=== PATIENT | female | born 1965 | race Caucasian/White ===

== ENCOUNTER 2025-02-24 19:34 | Emergency (ER) | payer MEDICARE, SELFPAY ==
[2025-02-24 20:08] VITALS: BP 185/71; PULSE 90; TEMP 36.8; O2SAT 90; BMI 31.2
--- NOTE | 2025-02-24 21:04 | XR_ITS ---
The [address] [address] Patient Name: MARK LUX MRN: [id number] date: 1965 Sex: F Assigned Patient Location: ED.MAIN Current Patient Location: ED.MAIN Accession/Order Number: [id number] Exam Date: 02/24/2025 21:49 Report Date: 02/24/2025 22:28 At the request of: TR HALL Procedure: XR chest 2V PA AND LATERAL CHEST: CLINICAL HISTORY: copd cough COMPARISON: None FINDINGS: Mildly prominent cardiomediastinal. Left suprahilar opacity/medial left upper lung opacity. Remaining lungs are clear. No effusion or pneumothorax. Left axillary surgical clips. Aortic stent graft. XR/XR chest 2V IMPRESSION: Left upper lung/periaortic opacity, unclear as to related to airspace disease, partial/lobar collapse versus sequelae of prior aortic procedure correlate with any previous imaging.. Impression dictated by: John Simon M.D. 02/24/2025 10:28 PM Dictation Location: [place] [address] Electronically authenticated by: [id number] Y Date: 02/24/2025 22:28
--- NOTE | 2025-02-24 21:17 | ED.URI1 ---
Documented by User: ISABEL CALERO 02/24/25 22:02 HPI - URI/Sore Throat General Chief Complaint: Upper Respiratory Infection Stated Complaint: CHEST CONGESTION Time Seen by Provider: 02/24/25 20:51 Source: patient History of Present Illness HPI Narrative: 59-year-old female with longstanding COPD, currently on nighttime supplemental oxygen, presents to the ED with shortness of breath. She reports her home oxygen saturation dropped to 77% today, she was not on her home oxygen at that time. She has experienced sinus-type symptoms for approximately one week, which she states have recently ?moved into her chest.? She is producing yellowish sputum. She is afebrile, denies chest pressure or hemoptysis, and reports she has experienced similar episodes in the past. She denies lightheadedness, dizziness, abdominal pain, or numbness/tingling in her extremities. She has not taken any medications for these symptoms prior to arrival. MD elicited complaint: Reports cough Related Data Allergies Allergy/AdvReac Type Severity Reaction Status Date / Time morphine Allergy Unknown Seizure Verified 02/24/25 20:08 walnut Allergy Seizure Verified 02/24/25 20:08 [facility] Social History Little interest or pleasure in doing things: not at all Feeling down, depressed, or hopeless: not at all Exam Narrative Exam Narrative: General: Alert, in no acute respiratory distress. Vital Signs / Oxygenation: Triage oxygen saturation 77% on room air; patient on supplemental oxygen as needed at home. . Lungs: Coarse breath sounds with wheezing and crackles bilaterally. Cardiac: Regular rate and rhythm, no murmurs. Extremities: Good capillary refill in nailbeds, no pedal edema. Abdomen: Soft, non-tender, non-distended. Skin: Warm, dry, intact. Neuro: Alert and oriented, no focal deficits. Constitutional Vital Signs, click to edit/add: Last Vital Signs Temp 98.3 F 02/24/25 20:08 Pulse 94 H 02/24/25 21:38 Resp 18 02/24/25 21:38 BP 185/71 H 02/24/25 20:08 Pulse Ox 94 L 02/24/25 21:38 O2 Del Method Nasal Cannula 02/24/25 21:38 O2 Flow Rate 2 02/24/25 21:38 Course Vital Signs Vital signs: Vital Signs Temperature 98.3 F 02/24/25 20:08 Pulse Rate 90 02/24/25 20:08 Respiratory Rate 20 02/24/25 20:08 Blood Pressure 185/71 H 02/24/25 20:08 Pulse Oximetry 90 L 02/24/25 20:08 Oxygen Delivery Method Room Air 02/24/25 20:08 Temperature 98.3 F 02/24/25 20:08 Pulse Rate 94 H 02/24/25 21:38 Respiratory Rate 18 02/24/25 21:38 Blood Pressure 185/71 H 02/24/25 20:08 Pulse Oximetry 94 L 02/24/25 21:38 Oxygen Delivery Method Nasal Cannula 02/24/25 21:38 Oxygen Delivery Flow Rate 2 02/24/25 21:38 MDM - URI/Sore Throat MDM Narrative Medical decision making narrative: 59-year-old female with longstanding COPD presents with shortness of breath and hypoxemia. On triage, oxygen saturation was 77% on room air. Exam shows coarse lung sounds with wheezing and crackles, heart regular, no pedal edema. ABG: pH 7.40, pCO2 46 mmHg, pO? 57 mmHg, HCO2 29 mEq/L, base excess +5.2, O2 saturation 91% on supplemental oxygen. These values indicate mild hypoxemia with chronic compensated hypercapnia, consistent with her COPD baseline. Other labs and xray Differential includes COPD exacerbation vs superimposed pneumonia given productive cough and crackles. No fever or hemodynamic instability noted. Labs and imaging pending or will guide further management. Plan: Administer bronchodilator therapy (albuterol/ipratropium) and systemic corticosteroids. Antibiotics appropriate for COPD excerbation. Maintain supplemental oxygen targeting saturation 88?92% per COPD guidelines. Monitor vital signs, oxygenation Possibly admit for observation and management of acute COPD exacerbation versus home management Patient signed out to Dr. Flynn, ED attending at 2100 Differential Diagnosis Differential diagnosis: Likely upper respiratory infection, viral infection and bronchitis Medical Records Attestation: I reviewed the patient's medical records. Lab Data Attestation: I reviewed the patient's lab results. Labs: Lab Results 02/24/25 02/24/25 02/24/25 Range/Units 21:20 21:32 21:55 WBC 8.7 (4.0-11.0) 10^3/uL RBC 4.13 L (4.20-5.40) 10^6/uL Hgb 12.9 (12.0-16.0) g/dL Hct 40.4 (36.0-48.0) % MCV 97.8 (81.0-99.0) fL MCH 31.2 (26.7-34.0) pg MCHC 31.9 (29.9-35.2) g/dL RDW 13.9 (11.0-15.0) % Plt Count 146 L (150-450) 10^3/uL MPV 10.9 (9.5-13.5) fL Neut % (Auto) 76.9 H (43.0-75.0) % Lymph % (Auto) 14.3 L (20.5-60.0) % [place] % (Auto) 5.5 (1.7-12.0) % Eos % (Auto) 2.6 (0.9-7.0) % Baso % (Auto) 0.2 (0.2-2.0) % Neut # (Auto) 6.7 H (1.4-6.5) 10^3/uL Lymph # (Auto) 1.3 (1.2-3.8) 10^3/uL [place] # (Auto) 0.5 (0.3-0.8) 10^3/uL Eos # (Auto) 0.2 (0.0-0.7) 10^3/uL Baso # (Auto) 0.0 (0.0-0.1) 10^3/uL Abs Immat Gran (auto) 0.04 H (0.00-0.03) 10^3/uL Imm/Tot Granulo (auto) 0.5 (0.0-0.5) % Puncture Site Lr ABG pH 7.418 (7.350-7.450) ABG pCO2 46.1 H (35.0-45.0) mmHg ABG pO2 57.2 L* (80.0-100.0) mmHg ABG HCO3 29.8 H (22.0-26.0) mmol/L ABG O2 Saturation 91.0 % ABG Base Excess 5.2 H (-2.0-2.0) mmol/L Clive Test Positive (POSITIVE) O2 Liters/Min 2 Sodium 130 L (136-145) mmol/L Potassium 4.1 (3.5-5.1) mmol/L Chloride 95 L (98-107) mmol/L Carbon Dioxide 27.9 (21.0-32.0) mmol/L Anion Gap 11.2 BUN 11.0 (7.0-18.0) mg/dL Creatinine 0.93 (0.55-1.02) mg/dL Est GFR ( Amer) >60 (>=60 mL/min/1.73m^2) Est GFR (Non-Af Amer) >60 (>=60 mL/min/1.73m^2) BUN/Creatinine Ratio 11.8 Glucose 167 H (74-106) mg/dL Lactate 0.4 (0.4-2.0) mmol/L Calcium 8.8 (8.5-10.1) mg/dL Troponin I High Sens 6.9 (4.0-51.3) pg/mL Influenza Type A Ag Influenza Type B Ag SARS-CoV-2 Ag (CV2AG) (NEGATIVE) 02/24/25 Range/Units 22:18 WBC (4.0-11.0) 10^3/uL RBC (4.20-5.40) 10^6/uL Hgb (12.0-16.0) g/dL Hct (36.0-48.0) % MCV (81.0-99.0) fL MCH (26.7-34.0) pg MCHC (29.9-35.2) g/dL RDW (11.0-15.0) % Plt Count (150-450) 10^3/uL MPV (9.5-13.5) fL Neut % (Auto) (43.0-75.0) % Lymph % (Auto) (20.5-60.0) % [place] % (Auto) (1.7-12.0) % Eos % (Auto) (0.9-7.0) % Baso % (Auto) (0.2-2.0) % Neut # (Auto) (1.4-6.5) 10^3/uL Lymph # (Auto) (1.2-3.8) 10^3/uL [place] # (Auto) (0.3-0.8) 10^3/uL Eos # (Auto) (0.0-0.7) 10^3/uL Baso # (Auto) (0.0-0.1) 10^3/uL Abs Immat Gran (auto) (0.00-0.03) 10^3/uL Imm/Tot Granulo (auto) (0.0-0.5) % Puncture Site ABG pH (7.350-7.450) ABG pCO2 (35.0-45.0) mmHg ABG pO2 (80.0-100.0) mmHg ABG HCO3 (22.0-26.0) mmol/L ABG O2 Saturation % ABG Base Excess (-2.0-2.0) mmol/L Clive Test (POSITIVE) O2 Liters/Min Sodium (136-145) mmol/L Potassium (3.5-5.1) mmol/L Chloride (98-107) mmol/L Carbon Dioxide (21.0-32.0) mmol/L Anion Gap BUN (7.0-18.0) mg/dL Creatinine (0.55-1.02) mg/dL Est GFR ( Amer) (>=60 mL/min/1.73m^2) Est GFR (Non-Af Amer) (>=60 mL/min/1.73m^2) BUN/Creatinine Ratio Glucose (74-106) mg/dL Lactate (0.4-2.0) mmol/L Calcium (8.5-10.1) mg/dL Troponin I High Sens (4.0-51.3) pg/mL Influenza Type A Ag Negative Influenza Type B Ag Negative SARS-CoV-2 Ag (CV2AG) Negative (NEGATIVE) Imaging Data Chest x-ray: Radiologist's impression: ITS Impressions Chest X-Ray 02/24/25 21:04 IMPRESSION: Left upper lung/periaortic opacity, unclear as to related to airspace disease, partial/lobar collapse versus sequelae of prior aortic procedure correlate with any previous imaging.. Impression dictated by: John Simon M.D. 02/24/2025 10:28 PM Dictation Location: [place] [address] Electronically authenticated by: [id number] Y Date: 02/24/2025 22:28 Discharge Plan Discharge Chief Complaint: Upper Respiratory Infection Clinical Impression: CAP (community acquired pneumonia) Patient Disposition: Home, Self-Care Print Language: Gambian Instructions: Community Acquired Pneumonia (ED) Additional Instructions: follow up with the family doctor this week for recheck Referrals: Abran Velez MD [Primary Care Provider] - 1 week Discharge Date/Time: 02/24/25 23:56 Documented by User: James Flynn MD 02/26/25 23:18 HPI - URI/Sore Throat General Chief Complaint: Upper Respiratory Infection Stated Complaint: CHEST CONGESTION Time Seen by Provider: 02/24/25 20:51 Related Data Allergies Allergy/AdvReac Type Severity Reaction Status Date / Time morphine Allergy Unknown Seizure Verified 02/24/25 20:08 walnut Allergy Seizure Verified 02/24/25 20:08 PFSH PFSH Social History Little interest or pleasure in doing things: not at all Feeling down, depressed, or hopeless: not at all Exam Constitutional Vital Signs, click to edit/add: Last Vital Signs Temp 98.3 F 02/24/25 20:08 Pulse 94 H 02/24/25 21:38 Resp 18 02/24/25 21:38 BP 185/71 H 02/24/25 20:08 Pulse Ox 94 L 02/24/25 21:38 O2 Del Method Nasal Cannula 02/24/25 21:38 O2 Flow Rate 2 02/24/25 21:38 Course Vital Signs Vital signs: Vital Signs Temperature 98.3 F 02/24/25 20:08 Pulse Rate 90 02/24/25 20:08 Respiratory Rate 20 02/24/25 20:08 Blood Pressure 185/71 H 02/24/25 20:08 Pulse Oximetry 90 L 02/24/25 20:08 Oxygen Delivery Method Room Air 02/24/25 20:08 Temperature 98.3 F 02/24/25 20:08 Pulse Rate 94 H 02/24/25 21:38 Respiratory Rate 18 02/24/25 21:38 Blood Pressure 185/71 H 02/24/25 20:08 Pulse Oximetry 94 L 02/24/25 21:38 Oxygen Delivery Method Nasal Cannula 02/24/25 21:38 Oxygen Delivery Flow Rate 2 02/24/25 21:38 MDM - URI/Sore Throat MDM Narrative Medical decision making narrative: 59-year-old female with longstanding COPD presents with shortness of breath and hypoxemia. On triage, oxygen saturation was 77% on room air. Exam shows coarse lung sounds with wheezing and crackles, heart regular, no pedal edema. ABG: pH 7.40, pCO2 46 mmHg, pO? 57 mmHg, HCO2 29 mEq/L, base excess +5.2, O2 saturation 91% on supplemental oxygen. These values indicate mild hypoxemia with chronic compensated hypercapnia, consistent with her COPD baseline. Other labs and xray Differential includes COPD exacerbation vs superimposed pneumonia given productive cough and crackles. No fever or hemodynamic instability noted. Labs and imaging pending or will guide further management. Plan: Administer bronchodilator therapy (albuterol/ipratropium) and systemic corticosteroids. Antibiotics appropriate for COPD excerbation. Maintain supplemental oxygen targeting saturation 88?92% per COPD guidelines. Monitor vital signs, oxygenation Possibly admit for observation and management of acute COPD exacerbation versus home management Patient signed out to Dr. Flynn, ED attending at 2100 care transferred at change of shift. Pt on 02 2LNC and pulse ox 94%. no distress. cxray with early infiltrate left chest. Patient advised of the above, given rocephin and zithromax in the department and discharged home Lab Data Labs: Lab Results 02/24/25 02/24/25 02/24/25 Range/Units 21:20 21:32 21:55 WBC 8.7 (4.0-11.0) 10^3/uL RBC 4.13 L (4.20-5.40) 10^6/uL Hgb 12.9 (12.0-16.0) g/dL Hct 40.4 (36.0-48.0) % MCV 97.8 (81.0-99.0) fL MCH 31.2 (26.7-34.0) pg MCHC 31.9 (29.9-35.2) g/dL RDW 13.9 (11.0-15.0) % Plt Count 146 L (150-450) 10^3/uL MPV 10.9 (9.5-13.5) fL Neut % (Auto) 76.9 H (43.0-75.0) % Lymph % (Auto) 14.3 L (20.5-60.0) % [place] % (Auto) 5.5 (1.7-12.0) % Eos % (Auto) 2.6 (0.9-7.0) % Baso % (Auto) 0.2 (0.2-2.0) % Neut # (Auto) 6.7 H (1.4-6.5) 10^3/uL Lymph # (Auto) 1.3 (1.2-3.8) 10^3/uL [place] # (Auto) 0.5 (0.3-0.8) 10^3/uL Eos # (Auto) 0.2 (0.0-0.7) 10^3/uL Baso # (Auto) 0.0 (0.0-0.1) 10^3/uL Abs Immat Gran (auto) 0.04 H (0.00-0.03) 10^3/uL Imm/Tot Granulo (auto) 0.5 (0.0-0.5) % Puncture Site Lr ABG pH 7.418 (7.350-7.450) ABG pCO2 46.1 H (35.0-45.0) mmHg ABG pO2 57.2 L* (80.0-100.0) mmHg ABG HCO3 29.8 H (22.0-26.0) mmol/L ABG O2 Saturation 91.0 % ABG Base Excess 5.2 H (-2.0-2.0) mmol/L Clive Test Positive (POSITIVE) O2 Liters/Min 2 Sodium 130 L (136-145) mmol/L Potassium 4.1 (3.5-5.1) mmol/L Chloride 95 L (98-107) mmol/L Carbon Dioxide 27.9 (21.0-32.0) mmol/L Anion Gap 11.2 BUN 11.0 (7.0-18.0) mg/dL Creatinine 0.93 (0.55-1.02) mg/dL Est GFR ( Amer) >60 (>=60 mL/min/1.73m^2) Est GFR (Non-Af Amer) >60 (>=60 mL/min/1.73m^2) BUN/Creatinine Ratio 11.8 Glucose 167 H (74-106) mg/dL Lactate 0.4 (0.4-2.0) mmol/L Calcium 8.8 (8.5-10.1) mg/dL Troponin I High Sens 6.9 (4.0-51.3) pg/mL Influenza Type A Ag Influenza Type B Ag SARS-CoV-2 Ag (CV2AG) (NEGATIVE) 02/24/25 Range/Units 22:18 WBC (4.0-11.0) 10^3/uL RBC (4.20-5.40) 10^6/uL Hgb (12.0-16.0) g/dL Hct (36.0-48.0) % MCV (81.0-99.0) fL MCH (26.7-34.0) pg MCHC (29.9-35.2) g/dL RDW (11.0-15.0) % Plt Count (150-450) 10^3/uL MPV (9.5-13.5) fL Neut % (Auto) (43.0-75.0) % Lymph % (Auto) (20.5-60.0) % [place] % (Auto) (1.7-12.0) % Eos % (Auto) (0.9-7.0) % Baso % (Auto) (0.2-2.0) % Neut # (Auto) (1.4-6.5) 10^3/uL Lymph # (Auto) (1.2-3.8) 10^3/uL [place] # (Auto) (0.3-0.8) 10^3/uL Eos # (Auto) (0.0-0.7) 10^3/uL Baso # (Auto) (0.0-0.1) 10^3/uL Abs Immat Gran (auto) (0.00-0.03) 10^3/uL Imm/Tot Granulo (auto) (0.0-0.5) % Puncture Site ABG pH (7.350-7.450) ABG pCO2 (35.0-45.0) mmHg ABG pO2 (80.0-100.0) mmHg ABG HCO3 (22.0-26.0) mmol/L ABG O2 Saturation % ABG Base Excess (-2.0-2.0) mmol/L Clive Test (POSITIVE) O2 Liters/Min Sodium (136-145) mmol/L Potassium (3.5-5.1) mmol/L Chloride (98-107) mmol/L Carbon Dioxide (21.0-32.0) mmol/L Anion Gap BUN (7.0-18.0) mg/dL Creatinine (0.55-1.02) mg/dL Est GFR ( Amer) (>=60 mL/min/1.73m^2) Est GFR (Non-Af Amer) (>=60 mL/min/1.73m^2) BUN/Creatinine Ratio Glucose (74-106) mg/dL Lactate (0.4-2.0) mmol/L Calcium (8.5-10.1) mg/dL Troponin I High Sens (4.0-51.3) pg/mL Influenza Type A Ag Negative Influenza Type B Ag Negative SARS-CoV-2 Ag (CV2AG) Negative (NEGATIVE) Imaging Data Chest x-ray: Radiologist's impression: ITS Impressions Chest X-Ray 02/24/25 21:04 IMPRESSION: Left upper lung/periaortic opacity, unclear as to related to airspace disease, partial/lobar collapse versus sequelae of prior aortic procedure correlate with any previous imaging.. Impression dictated by: John Simon M.D. 02/24/2025 10:28 PM Dictation Location: [place] [address] Electronically authenticated by: [id number] Y Date: 02/24/2025 22:28 Discharge Plan Discharge Chief Complaint: Upper Respiratory Infection Clinical Impression: CAP (community acquired pneumonia) Patient Disposition: Home, Self-Care Print Language: Gambian Instructions: Community Acquired Pneumonia (ED) Additional Instructions: follow up with the family doctor this week for recheck Referrals: Abran Velez MD [Primary Care Provider] - 1 week Discharge Date/Time: 02/24/25 23:56
[2025-02-24 21:25] LABS: ABG PCO2 46.1 mmHg (35.0-45.0); HCO3 ABG 29.8 mmol/L (22.0-26.0)
[2025-02-24 21:26] LABS: Allen Test POSITIVE (POSITIVE); Liters per Minute 2; O2 Mode NASAL CANNULA; Oxygen Saturation ABG 91.0 %; Puncture Site LR
[2025-02-24 21:28] LABS: PO2 ABG 57.2 mmHg (80.0-100.0)
[2025-02-24] MEDS: IPRATROPIUM/ALBUTEROL SULFATE 3 ML AMPUL.NEB 6 ML IH (21:36)
[2025-02-24 21:38] VITALS: PULSE 94; O2SAT 94
[2025-02-24 21:48] LABS: Hematocrit 40.4 % (36.0-48.0); Hemoglobin 12.9 g/dL (12.0-16.0); Immature Granulocytes Abs Auto 0.04 10^3/uL (0.00-0.03); Immature Granulocytes Pct Auto 0.5 % (0.0-0.5); Lymphocytes Absolute Auto 1.3 10^3/uL (1.2-3.8); Mean Corpuscular HGB Conc 31.9 g/dL (29.9-35.2); Mean Corpuscular Hemoglobin 31.2 pg (26.7-34.0); Mean Corpuscular Volume 97.8 fL (81.0-99.0); Platelet Count 146 10^3/uL (150-450); Red Blood Count 4.13 10^6/uL (4.20-5.40); White Blood Count 8.7 10^3/uL (4.0-11.0)
[2025-02-24 22:08] LABS: Anion Gap 11.2; Blood Urea Nitrogen 11.0 mg/dL (7.0-18.0); Calcium 8.8 mg/dL (8.5-10.1); Carbon Dioxide 27.9 mmol/L (21.0-32.0); Chloride 95 mmol/L (98-107); Estimated GFR (African America >60 (>=60 mL/min/1.73m^2); Estimated GFR (Non-African Ame >60 (>=60 mL/min/1.73m^2); Glucose 167 mg/dL (74-106); Potassium 4.1 mmol/L (3.5-5.1); Sodium 130 mmol/L (136-145)
[2025-02-24] MEDS: METHYLPREDNISOLONE SOD SUCC PF 125 MG/2 ML VIAL IVP (22:19)
[2025-02-24 22:43] LABS: Lactate/Lactic Acid 0.4 mmol/L (0.4-2.0)
[2025-02-24 22:45] LABS: SARS-CoV-2 Ag NEGATIVE (NEGATIVE)
[2025-02-24] MEDS: AZITHROMYCIN 250 MG TABLET 500 MG PO (23:07)
== END 2025-02-24 23:56 | disposition home or self-care (01) ==
PROVIDERS: Physician Assistant; Emergency Provider Internal Medicine; PCP Family Medicine
DX: J18.9 Pneumonia, unspecified organism (principal); J44.0 Chronic obstructive pulmonary disease with (acute) lower respiratory infection; R06.02 Shortness of breath
CPT/HCPCS: 36415; 36600; 71046; 80048; 82805; 83605; 84484; 85025; 87804; 87811; 94640; 96365; 96375; 99284; J0696; J2919